=== PATIENT | female | born 1995 | race Caucasian/White ===

== ENCOUNTER 2023-12-19 17:41 | Emergency (ER) | payer OTHER ==
[~2023-12-19] VITALS: Ht 170.2 cm; Wt 61.4 kg
[2023-12-19] MEDS ORDERED: NORCO, ANEXSIA 5/325MG TABLET (HYDROcodone/ACETAMINOPHEN) PO ONE (19:55)
[2023-12-19] MEDS ORDERED: NORCO 5/325MG TABLET (HOME DOSE PACK) PO ONE (21:45)
[2023-12-19] MEDS ORDERED: HYDR-3713 PO (21:45)
[2023-12-19 21:54] VITALS: BP 124/72; TEMP 98; O2SAT 97
== END 2023-12-19 21:55 | disposition home or self-care (01) ==
LOC: M ED 17:41
DX: S42.021A Displaced fracture of shaft of right clavicle, initial encounter for closed fracture (principal); W19.XXXA Unspecified fall, initial encounter; Y92.9 Unspecified place or not applicable; Y93.29 Activity, other involving ice and snow; Y99.9 Unspecified external cause status; Z79.1 Long term (current) use of non-steroidal anti-inflammatories (NSAID)